=== PATIENT | male | born 2000 | race Caucasian/White ===

== ENCOUNTER 2024-01-13 16:00 | Outpatient (CLI) | payer BC | END 2024-01-13 16:01 | disposition home or self-care (01) | LOC: CSHSLEEP 16:00 | PROVIDERS: ATTEND Family Medicine | DX: G47.33 Obstructive sleep apnea (adult) (pediatric) (principal); R53.83 Other fatigue; F31.9 Bipolar disorder, unspecified; E66.9 Obesity, unspecified; Z68.41 Body mass index [BMI] 40.0-44.9, adult; R06.83 Snoring | CPT/HCPCS: 95811 ==